=== PATIENT | male | born 1960 | race Caucasian/White ===

== ENCOUNTER 2018-11-01 09:48 | Emergency (ER) | payer MEDICARE ==
[~2018-11-01] VITALS: Ht 170.2 cm; Wt 94.8 kg
--- NOTE | 2018-11-01 10:24 | RAD ---
CT HEAD INDICATION: RT SIDED WEAKNESS COMPARISON: None Available. Exposure: One or more of the following individualized dose reduction techniques were utilized for this examination: 1. Automated exposure control 2. Adjustment of the mA and/or kV according to patient size 3. Use of iterative reconstruction technique TECHNIQUE: 5 mm contiguous axial images were obtained from the skull base to the vertex in both bone and soft tissue algorithm. FINDINGS: There is moderate size hypodensity identified in the left posterior parietal region likely old infarct however there is suggestion of some edema or age indeterminate infarct surrounding the old infarct. Punctate 2 small foci of flow hyperdensity measuring 6 mm and 4 mm identified in the left posterior parietal region likely foci of bleed. No mass effect or midline shift. Ventricular size is appropriate. Basal cisterns are patent. No fractures identified.Jalloh-white differentiation is preserved.Globes and orbits are within normal limits. Paranasal sinuses and mastoid air cells are clear. IMPRESSION: 1. Moderate size hypodensity identified in the left posterior parietal region likely old infarct however there is suggestion of some edema or age indeterminate infarct surrounding the old infarct with 2 foci of hyperdensity likely bleed within the hypodensity. Recommend MRI for further evaluation. ER physician at [facility] was informed at time of dictation. . Electronically signed by: Sebas Paredes MD (11/01/2018 10:21 AM) [place] [id number]
[2018-11-01 10:33] LABS: BASO # 0.1 x10^3/uL (0.0-0.2); BASO % 1 % (0-3); EOS # 0.3 x10^3/uL (0.0-0.7); EOS % 4 % (0-3); HEMATOCRIT 46.3 % (39.0-53.0); HEMOGLOBIN 15.6 g/dL (13.0-17.5); LYMPH # 2.5 x10^3/uL (1.0-4.8); LYMPH % 36 % (24-48); MEAN CORPUSCULAR HEMOGLOBIN 31 pg (25-35); MEAN CORPUSCULAR HGB CONC 34 g/dL (31-37); MEAN CORPUSCULAR VOLUME 93 fL (79-100); MONO # 0.5 x10^3/uL (0.0-1.1); MONO % 7 % (0-9); NEUT # 3.6 x10^3uL (1.8-7.7); NEUT % 52 % (31-73); PLATELET COUNT 238 x10^3/uL (140-400); RED BLOOD COUNT 4.99 x10^6/uL (4.30-5.70); RED CELL DISTRIBUTION WIDTH 13.8 % (11.5-14.5)
[2018-11-01 10:46] LABS: ALBUMIN 3.8 g/dL (3.4-5.0); ALBUMIN/GLOBULIN RATIO 1.2 (1.0-1.7); CREATININE 0.9 mg/dL (0.7-1.3); POTASSIUM 4.5 mmol/L (3.5-5.1); TOTAL BILIRUBIN 0.4 mg/dL (0.2-1.0); TOTAL PROTEIN 6.9 g/dL (6.4-8.2)
--- NOTE | 2018-11-01 10:53 | RAD ---
AP portable chest radiograph 11/01/2018 Clinical History: Weakness. An AP erect portable digital radiograph of the chest was obtained. No previous studies are available for comparison. The cardiac silhouette is normal in size. The thoracic aorta is mildly tortuous. Elevation of the right hemidiaphragm is noted. No acute parenchymal infiltrate is seen. A 5 mm probable granuloma is seen involving the left lower lobe. No pleural effusion or pneumothorax is noted. The osseous structures are grossly intact. IMPRESSION: No acute abnormality is seen. Electronically signed by: Jayson Foster MD (11/01/2018 10:50 AM) [facility]
--- NOTE | 2018-11-01 11:28 | PHYS DOC ---
Past History Past Medical History: CVA, Hypertension Past Surgical History: No Surgical History Alcohol Use: None Drug Use: None Adult General Chief Complaint Chief Complaint: NEURO SYMPTOMS/DEFICITS HPI HPI Patient is a 58-year-old male who presents after a syncopal episode in a medical office. Patient had been having a headache this morning. History is limited from the patient due to altered mental status. He has a previous history of a CVA with right arm weakness. He is normally able to walk however that has changed and become worse today. Calling to his workplace, he was last seen normal at approximately 8 AM.[] Review of Systems Review of Systems Unable to obtain due to altered mental status[] All other systems were reviewed and found to be within normal limits, except as documented in this note. Allergies Allergies Allergies Coded Allergies Type Severity Reaction Last Updated Verified iodine Allergy Severe 11/01/18 Yes Physical Exam Physical Exam Constitutional: Well developed, well nourished, ill appearing. [] HENT: Normocephalic, atraumatic, bilateral external ears normal, oropharynx moist, no oral exudates, nose normal. [] Eyes: PERRLA, EOMI, conjunctiva normal, no discharge. [] Neck: Normal range of motion, no tenderness, supple, no stridor. [] Cardiovascular:Heart rate regular rhythm, no murmur [] Lungs & Thorax: Bilateral breath sounds clear to auscultation [] Abdomen: Bowel sounds normal, soft, no tenderness, no masses, no pulsatile masses. [] Skin: Warm, dry, no erythema, no rash. [] Back: No tenderness, no CVA tenderness. [] Extremities: No tenderness, no cyanosis, no clubbing, ROM intact, no edema. [] Neurologic: GCS 14, E3, slow to answer questions, right-sided arm and leg weakness. Decreased sharp versus dull sensation on the right[] Psychologic: Affect normal, judgement normal, mood normal. [] Current Patient Data Vital Signs Vital Signs Date Time Temp Pulse Resp B/P (MAP) Pulse Ox O2 Delivery O2 Flow Rate FiO2 11/01/18 10:11 98.7 87 18 98 Room Air Lab Results Laboratory Tests Test 11/01/18 10:19 11/01/18 10:29 White Blood Count 7.0 x10^3/uL (4.0-11.0) Red Blood Count 4.99 x10^6/uL (4.30-5.70) Hemoglobin 15.6 g/dL (13.0-17.5) Hematocrit 46.3 % (39.0-53.0) Mean Corpuscular Volume 93 fL (79-100) Mean Corpuscular Hemoglobin 31 pg (25-35) Mean Corpuscular Hemoglobin Concent 34 g/dL (31-37) Red Cell Distribution Width 13.8 % (11.5-14.5) Platelet Count 238 x10^3/uL (140-400) Neutrophils (%) (Auto) 52 % (31-73) Lymphocytes (%) (Auto) 36 % (24-48) Monocytes (%) (Auto) 7 % (0-9) Eosinophils (%) (Auto) 4 % (0-3) H Basophils (%) (Auto) 1 % (0-3) Neutrophils # (Auto) 3.6 x10^3uL (1.8-7.7) Lymphocytes # (Auto) 2.5 x10^3/uL (1.0-4.8) Monocytes # (Auto) 0.5 x10^3/uL (0.0-1.1) Eosinophils # (Auto) 0.3 x10^3/uL (0.0-0.7) Basophils # (Auto) 0.1 x10^3/uL (0.0-0.2) Sodium Level 144 mmol/L (136-145) Potassium Level 4.5 mmol/L (3.5-5.1) Chloride Level 107 mmol/L (98-107) Carbon Dioxide Level 29 mmol/L (21-32) Anion Gap 8 (6-14) Blood Urea Nitrogen 14 mg/dL (8-26) Creatinine 0.9 mg/dL (0.7-1.3) Estimated GFR (Cockcroft-Gault) 87.0 BUN/Creatinine Ratio 16 (6-20) Glucose Level 139 mg/dL (70-99) H Calcium Level 9.0 mg/dL (8.5-10.1) Total Bilirubin 0.4 mg/dL (0.2-1.0) Aspartate Amino Transferase (AST) 21 U/L (15-37) Alanine Aminotransferase (ALT) 31 U/L (16-63) Alkaline Phosphatase 98 U/L (46-116) Troponin I Quantitative < 0.017 ng/mL (0-0.055) Total Protein 6.9 g/dL (6.4-8.2) Albumin 3.8 g/dL (3.4-5.0) Albumin/Globulin Ratio 1.2 (1.0-1.7) Glucose (Fingerstick) 134 mg/dL (70-99) H EKG EKG [] Radiology/Procedures Radiology/Procedures CT HEAD INDICATION: RT SIDED WEAKNESS COMPARISON: None Available. Exposure: One or more of the following individualized dose reduction techniques were utilized for this examination: 1. Automated exposure control 2. Adjustment of the mA and/or kV according to patient size 3. Use of iterative reconstruction technique TECHNIQUE: 5 mm contiguous axial images were obtained from the skull base to the vertex in both bone and soft tissue algorithm. FINDINGS: There is moderate size hypodensity identified in the left posterior parietal region likely old infarct however there is suggestion of some edema or age indeterminate infarct surrounding the old infarct. Punctate 2 small foci of flow hyperdensity measuring 6 mm and 4 mm identified in the left posterior parietal region likely foci of bleed. No mass effect or midline shift. Ventricular size is appropriate. Basal cisterns are patent. No fractures identified.Jalloh-white differentiation is preserved.Globes and orbits are within normal limits. Paranasal sinuses and mastoid air cells are clear. IMPRESSION: 1. Moderate size hypodensity identified in the left posterior parietal region likely old infarct however there is suggestion of some edema or age indeterminate infarct surrounding the old infarct with 2 foci of hyperdensity likely bleed within the hypodensity. Recommend MRI for further evaluation. AP portable chest radiograph 11/01/2018 Clinical History: Weakness. An AP erect portable digital radiograph of the chest was obtained. No previous studies are available for comparison. The cardiac silhouette is normal in size. The thoracic aorta is mildly tortuous. Elevation of the right hemidiaphragm is noted. No acute parenchymal infiltrate is seen. A 5 mm probable granuloma is seen involving the left lower lobe. No pleural effusion or pneumothorax is noted. The osseous structures are grossly intact. IMPRESSION: No acute abnormality is seen. Electronically signed by: Jayson Foster MD (11/01/2018 10:50 AM) [facility] [] Course & Med Decision Making Course & Med Decision Making Pertinent Labs and Imaging studies reviewed. (See chart for details) ED course: Patient arrived, was placed in bed, tolerated exam well. He was transported to and from [place] without any complications. Due to the possibility of an intracranial bleed, TPA was held. Consultation was made with Dr. Martina CHAMORRO, the stroke neurologist, who recommended that the patient be evaluated by neurosurgery given that there was the possibility of the bleed. At approximately 11:15 called by PEDRO PABLO, the patient had his head CT placed in the clouds so that the neurosurgeon could see it and the neurosurgeon did not feel that there were any acute changes. He recommended a CTA of the head and neck. However the patient has an IV iodine allergy and so unable to obtain the CTA.[] Dragon Disclaimer Dragon Disclaimer This electronic medical record was generated, in whole or in part, using a voice recognition dictation system. Departure Departure: Impression: Primary Impression: Altered mental status Disposition: 05 TRANSFER OTHER Condition: GUARDED Referrals: EDGARDO PADILLA (PCP) Problem Qualifiers Primary Impression: Altered mental status Altered mental status type: somnolence Qualified Codes: R40.0 - Somnolence ELIECER ALICIA DO Nov 01, 2018 11:28
[2018-11-01] MEDS ORDERED: IOHEXOL 300 MG/ML 75 ML VIAL. IV ONE (11:30)
--- NOTE | 2018-11-01 11:42 | EKG ---
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
[2018-11-01 12:14] VITALS: BP 126/80
--- NOTE | 2018-11-01 13:21 | RAD ---
CT HEAD INDICATION: RT SIDED WEAKNESS COMPARISON: None Available. Exposure: One or more of the following individualized dose reduction techniques were utilized for this examination: 1. Automated exposure control 2. Adjustment of the mA and/or kV according to patient size 3. Use of iterative reconstruction technique TECHNIQUE: 5 mm contiguous axial images were obtained from the skull base to the vertex in both bone and soft tissue algorithm. FINDINGS: There is moderate size hypodensity identified in the left posterior parietal region likely old infarct however there is suggestion of some edema or age indeterminate infarct surrounding the old infarct. Punctate 2 small foci of flow hyperdensity measuring 6 mm and 4 mm identified in the left posterior parietal region likely foci of bleed. No mass effect or midline shift. Ventricular size is appropriate. Basal cisterns are patent. No fractures identified.Jalloh-white differentiation is preserved.Globes and orbits are within normal limits. Paranasal sinuses and mastoid air cells are clear. IMPRESSION: 1. Moderate size hypodensity identified in the left posterior parietal region likely old infarct however there is suggestion of some edema or age indeterminate infarct surrounding the old infarct with 2 foci of hyperdensity likely bleed within the hypodensity. Recommend MRI for further evaluation. ER physician at [facility] was informed at time of dictation. [facility]ITALRozina
== END 2018-11-01 13:50 | disposition short-term general hospital (02) ==
LOC: ER 09:48
DX: R40.0 Somnolence (principal); R55 Syncope and collapse; R53.1 Weakness; I10 Essential (primary) hypertension; Z86.73 Personal history of transient ischemic attack (TIA), and cerebral infarction without residual deficits; Z88.8 Allergy status to other drugs, medicaments and biological substances
CPT/HCPCS: 36415; 70450; 71045; 80053; 82947; 84484; 85025; 85610; 85730; 93005; 99285

== ENCOUNTER → 2020-02-18 | Day surgery (SDC) | payer MEDICARE ==
[~2020-02-18] MED LIST: ALPR0.25 PO; ASPI81TA59 PO; IPRATRPIUM/ALBUTEROL 0.5/2.5MG 3 ML NEBU. NEB PRN; IV RINGERS SOLUTION,LACTATED 1,000 ML IV SCH; LAMO100T8 PO; LIPITOR80 MG PO; MAGN250T10 PO; MELO15TA23 PO; METF100010 PO; METO25TA4 PO; MULT-245 PO; OMEG-165 PO; PROPOFOL 10,000 MCG/ML (20ML) VIAL IV ONE; TAMS0.4C97 PO; VENL150C PO
[2020-02-18 11:25] VITALS: BP 119/73
== END | disposition home or self-care (01) ==
LOC: SURG 08:15
PROVIDERS: ATTEND Internal Medicine Gastroenterology
DX: Z12.11 Encounter for screening for malignant neoplasm of colon (principal); K57.30 Diverticulosis of large intestine without perforation or abscess without bleeding; K63.89 Other specified diseases of intestine; E11.9 Type 2 diabetes mellitus without complications; E78.5 Hyperlipidemia, unspecified; F32.9 Major depressive disorder, single episode, unspecified; I10 Essential (primary) hypertension; E66.9 Obesity, unspecified; Z80.0 Family history of malignant neoplasm of digestive organs; Z86.73 Personal history of transient ischemic attack (TIA), and cerebral infarction without residual deficits; Z90.49 Acquired absence of other specified parts of digestive tract; Z91.041 Radiographic dye allergy status; Z98.890 Other specified postprocedural states; Z68.32 Body mass index [BMI] 32.0-32.9, adult; Z79.899 Other long term (current) drug therapy; Z79.82 Long term (current) use of aspirin; Z79.84 Long term (current) use of oral hypoglycemic drugs
CPT/HCPCS: G0105; J2704; J7120; 45378

== ENCOUNTER → 2020-06-26 | Outpatient (CLI) | payer MEDICARE ==
[2020-02-18 11:25] VITALS: BP 119/73
[~2020-06-26] MED LIST changes: -IPRATRPIUM/ALBUTEROL 0.5/2.5MG 3 ML NEBU. NEB PRN; -IV RINGERS SOLUTION,LACTATED 1,000 ML IV SCH; -PROPOFOL 10,000 MCG/ML (20ML) VIAL IV ONE
--- NOTE | 2020-06-26 16:28 | RAD ---
HIP LEFT 2 VIEW History: Left hip pain Comparison: June 21, 2018 Findings: 2 views of left hip are submitted. No acute fracture is identified. There is [id number] osteoarthritic change of the left hip. Left femoral head morphology is overall maintained. Impression: 1. There is mild to moderate osteoarthritic change of the left hip. Electronically signed by: Chester Brown MD (06/26/2020 4:25 PM) [facility]
== END ==
LOC: PMG 13:48
PROVIDERS: ATTEND Hospitalist
DX: M16.12 Unilateral primary osteoarthritis, left hip (principal)
CPT/HCPCS: 73502